=== PATIENT | female | born 1970 | race Caucasian/White ===

== ENCOUNTER 2017-06-16 14:35 | Emergency (ER) | payer OTHER ==
[~2017-06-16] VITALS: Ht 175.3 cm; Wt 81.2 kg
[~2017-06-16 14:35] MED LIST: ASPI-391 PO; CLR10 PO; LEVO150T9 PO
[2017-06-16 14:41] VITALS: TEMP 36.8; Ht 175.3 cm; Wt 81.2 kg
--- NOTE | 2017-06-16 15:36 | EMERGENCY ROOM VISIT NOTE ---
History First contact with patient: 14:53 Chief Complaint: DIZZY Stated Complaint: SOB CHEST PAIN Nursing Triage Summary: Pt states that for the past week she has been feeling anxious and light headed. Pt states that she was having chest discomfort last Friday. Pt is worried because her mother has had an DC. Pt states that when she had the chest discomfort her left arm became numb. Pt becomes dizzy several times a day. Pt does have Graves disease and thinks that maybe her levels are off. History of Present Illness The patient is a 46 year old female who presents to the Emergency Room with complaints of intermittent chest discomfort associated with left shoulder pain, tingling in bilateral upper extremities, and nausea with vomiting. The patient is scheduled to have a hysterectomy next Friday due to severe vaginal bleeding, and was unable to be seen by her PCP today. The patient begins her history describing severe vaginal bleeding which began in April. She states this occurred through June, and she has been seen several times by her magnetic resonance technologist with the decision to have a hysterectomy. She had her preop lab work completed 1 week ago, but a lab for the patient's TSH and free T4 was messed. The patient does have a history of Graves' disease, and states approximately 6 weeks ago, her Levoxyl was increased from 125 g to 150 g daily. She states she was supposed to have the labs completed Friday with her preop labwork, but the order was missed, so she was unable to have this tested. The patient was cleared for surgery by her PCP, but did not have an EKG at her appointment last week. She states 2 days after her preop appointment, she began experiencing a headache in the back of her head, which was associated with dizziness and lightheadedness. She was at work when this occurred, so she went home. While at home, she began experiencing chest discomfort in the substernal area, as well as a throbbing headache. She states she was having some nausea, one episode of vomiting, and her left bicep became heavy and her left hand was tingly. She fell asleep to take a nap, and when she awoke, she became lightheaded with bilateral paresthesias in her hands when she stood up. She states she tried several times to stand, and was unsuccessful without the symptoms. She states she called off the rest of her evening at work due to her symptoms. She states on , she did go to work, but still was not feeling quite right. She states she has been having intermittent symptoms for the past 5 days. Now, she is complaining of intermittent posterior shoulder "nagging" associated with substernal chest discomfort which she describes as "like when you're coughing". She states she has been getting winded easily, and she has found that she needs to rest due to palpitations, worse when physically active such as walking upstairs. She states she has noticed that her heart rate has been elevated, in the high 90s and low 100s. She became concerned today because after showering, she noticed a heart rate of 162. The patient's mother did have a heart attack at age 48, so the patient and her mother are both concerned that the patient could be experiencing cardiac problems. The patient states she is uncertain if her cholesterol has ever been checked, does not have a history of hypertension, is not a smoker, and takes no hormone replacement. She denies any recent travel, but states she did have some intermittent right calf pain associated with her discomfort last week, and she has not had the pain since. When asked about aggravating factors, the patient states that activity worsens the chest discomfort and dyspnea, and she does get winded easily while talking. She states food also worsens the nausea. The patient states rest improves her symptoms, but she does occasionally get the symptoms at rest as well. The patient states she has not been sexually active for 6 months, and she denies any urinary symptoms. She denies any cough or coughing up sputum. She denies any calf swelling or chest pressure. She denies any recent illness, and states she has had some mild congestion, but attributed this to allergies. Review of Systems A complete 10 point review of systems was reviewed with the patient with pertinent positives and negatives as per history of present illness. All else were negative. 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 Current/Historical Medications Scheduled Levothyroxine Sodium (Levothyroxine Sodium), 150 MCG PO QAM Scheduled PRN Yjgrriw-Vzztjynwsbztt-Riwhobtp (Excedrin Extra Strength), 2 TABS PO UD PRN for Headache or Pain Loratadine (Claritin), 10 MG PO DAILY PRN for Allergy Symptoms Allergies Codeine, doxycycline Physical Exam Vital Signs Date Time Temp Pulse Resp B/P (MAP) Pulse Ox O2 Delivery O2 Flow Rate FiO2 06/16/17 18:24 70 20 115/80 98 06/16/17 17:16 63 20 128/76 100 Room Air 06/16/17 15:09 89 06/16/17 14:41 36.8 102 18 138/87 100 Room Air Physical Exam VITALS: Vitals are noted on the nurse's note and reviewed by myself. Vital signs stable. GENERAL: This is a 46-year-old white female, in no acute distress, nondiaphoretic, well-developed well-nourished. SKIN: The skin was without rashes, erythema, edema, or bruising. There is no tenting of the skin. Capillary reflex less than 2 seconds. HEAD: Normocephalic atraumatic. EARS: External auditory canals clear, tympanic membranes pearly daugherty without erythema or effusion bilaterally. EYES: Pupils equal round and reactive to light and accommodation. Conjunctivae without injection, sclerae without icterus. Extraocular movements intact. NOSE: Patent, turbinates without inflammation or discharge. No sinus tenderness. MOUTH: Mucous membranes moist. Tonsils are not enlarged. Pharynx without erythema or exudate. Uvula midline. Airway patent. Tongue does not deviate. NECK: Supple without nuchal rigidity. No lymphadenopathy. Thyroid not present. Cervical spine is nontender. No JVD. HEART: Regular rate and rhythm without murmurs gallops or rubs. LUNGS: Clear to auscultation bilaterally without wheezes, rales or rhonchi. No dullness to percussion. No retractions or accessory muscle use. ABDOMEN: Positive bowel sounds x 4. Normal tympanic percussion. Soft, nontender, without masses or organomegaly. Mejia sign negative. No guarding or rebound tenderness. MUSCULOSKELETAL: There is discomfort on palpation of the sternum as well as the left scapula. There is also discomfort on palpation of the left biceps. The patient states this discomfort is similar to what she experiences when she gets flare-ups of her symptoms. No muscle atrophy, erythema, or edema noted, specifically, no edema or redness of the calves. Full range of motion without joint tenderness in all extremities. No tenderness to palpation. Normal gait. Strength 5/5 throughout. NEURO: Patient was alert and oriented to person place and time. Normal sensation to light and sharp touch. Deep tendon reflexes 2+ throughout. No focal neurological deficits. Medical Decision & Procedures ER Provider Diagnostic Interpretation: TWO VIEW CHEST CLINICAL HISTORY: Substernal chest pain. FINDINGS: PA and lateral chest radiographs are obtained. No prior studies are available for comparison at the time of dictation. The cardiomediastinal silhouette is unremarkable. The lungs and pleural spaces are clear. Apical scarring is observed. There is no pneumothorax. The bony thorax appears intact. IMPRESSION: No active disease in the chest. Electronically signed by: Dutch Ulloa M.D. 06/16/2017 4:10 PM Dictated Date/Time: 06/16/2017 4:09 PM CBC did show very mild anemia. This has improved patient's previous labs tested one week ago. CMP showed slightly decreased potassium of 3.3. Troponin and CK-MB were normal. Troponin was repeated approximately 1.5 hours later and was negative. D-dimer was positive at 660. A CTA chest was ordered and reviewed. TSH 0.080 and Free T4 1.44. Of note, the patient states her previous TSH tested on 05/01 was 1.38. Her Free T4 at that time was 0.724. She states due to her history of Graves disease, she is aware that she generally feels well with a TSH of around 1.0. CT ANGIOGRAM OF THE CHEST CLINICAL HISTORY: Atypical chest pain. COMPARISON STUDY: Chest radiographs dated 06/16/2017. TECHNIQUE: Following the IV administration of 100 cc of Optiray 320, CT angiogram of the chest was performed from the upper abdomen to the thoracic inlet utilizing the pulmonary embolus protocol. Images are reviewed in the axial, sagittal, and coronal planes. 3-D MIPS images are created and assessed. IV contrast was administered without complication. A dose lowering technique was utilized adhering to the principles of ALARA. CT DOSE: 270.26 mGy.cm FINDINGS: Thyroid: Markedly atrophic. Thoracic aorta: The thoracic aorta is normal in caliber and demonstrates standard 3-vessel arch anatomy. No dissection is seen. Pulmonary vasculature: The pulmonary trunk is normal in caliber. There are no filling defects identified in main, lobar, or segmental pulmonary branches to suggest pulmonary embolus. Heart: The heart is normal in size and configuration, and without pericardial effusion. Lungs and pleural spaces: Evaluation of the lung parenchyma is modestly degraded by motion artifact. No airspace consolidation or pleural effusion is identified. A calcified granuloma is seen in the right upper lobe. The trachea and central airways are clear. Mediastinum: There is no mediastinal lymphadenopathy. Oliva: Clear. Axillae: There is no axillary lymphadenopathy. Upper abdomen: Partially visualized upper abdominal viscera is within normal limits. Skeletal structures: No lytic or blastic bony lesions are seen. IMPRESSION: 1. There is no evidence of pulmonary embolus in the main, lobar, or segmental pulmonary arteries. 2. The lungs are clear. Electronically signed by: Dutch Ulloa M.D. 06/16/2017 6:03 PM Dictated Date/Time: 06/16/2017 5:59 PM Repeat EKG showed rate of 63, no sinus arrhythmia, no acute ischemic changes, no significant change from previous EKG. Laboratory Results 06/16/17 15:30 Red Blood Count 4.04, Mean Corpuscular Volume 84.7, Mean Corpuscular Hemoglobin 27.7, Mean Corpuscular Hemoglobin Concent 32.7, Mean Platelet Volume 11.9, Neutrophils (%) (Auto) 51.2, Lymphocytes (%) (Auto) 40.4, Monocytes (%) (Auto) 5.7, Eosinophils (%) (Auto) 2.2, Basophils (%) (Auto) 0.3, Neutrophils # (Auto) 3.31, Lymphocytes # (Auto) 2.61, Monocytes # (Auto) 0.37, Eosinophils # (Auto) 0.14, Basophils # (Auto) 0.02 06/16/17 15:30 Test 06/16/17 15:19 06/16/17 15:30 06/16/17 17:23 Creatine Kinase MB Ratio (0-3.0) White Blood Count 6.46 K/uL (4.8-10.8) Red Blood Count 4.04 M/uL (4.2-5.4) Hemoglobin 11.2 g/dL (12.0-16.0) Hematocrit 34.2 % (37-47) Mean Corpuscular Volume 84.7 fL (80-100) Mean Corpuscular Hemoglobin 27.7 pg (25-34) Mean Corpuscular Hemoglobin Concent 32.7 g/dl (32-36) Platelet Count 342 K/uL (130-400) Mean Platelet Volume 11.9 fL (7.4-10.4) Neutrophils (%) (Auto) 51.2 % Lymphocytes (%) (Auto) 40.4 % Monocytes (%) (Auto) 5.7 % Eosinophils (%) (Auto) 2.2 % Basophils (%) (Auto) 0.3 % Neutrophils # (Auto) 3.31 K/uL (1.4-6.5) Lymphocytes # (Auto) 2.61 K/uL (1.2-3.4) Monocytes # (Auto) 0.37 K/uL (0.11-0.59) Eosinophils # (Auto) 0.14 K/uL (0-0.5) Basophils # (Auto) 0.02 K/uL (0-0.2) RDW Standard Deviation 46.2 fL (36.4-46.3) RDW Coefficient of Variation 15.0 % (11.5-14.5) Immature Granulocyte % (Auto) 0.2 % Immature Granulocyte # (Auto) 0.01 K/uL (0.00-0.02) D-Dimer 660 ug/L FEU (0-500) Anion Gap 7.0 mmol/L (3-11) Est Creatinine Clear Calc Drug Dose 124.6 ml/min Estimated GFR () 124.3 Estimated GFR (Non- 107.2 BUN/Creatinine Ratio 17.5 (10-20) Calcium Level 8.9 mg/dl (8.5-10.1) Magnesium Level 2.3 mg/dl (1.8-2.4) Total Bilirubin 0.2 mg/dl (0.2-1) Aspartate Amino Transf (AST/SGOT) 12 U/L (15-37) Alanine Aminotransferase (ALT/SGPT) 16 U/L (12-78) Alkaline Phosphatase 74 U/L (45-117) Creatine Kinase MB < 0.5 ng/ml (0.5-3.6) Troponin I < 0.015 ng/ml (0-0.045) Pro-B-Type Natriuretic Peptide 130 pg/ml (0-450) Total Protein 8.0 gm/dl (6.4-8.2) Albumin 4.1 gm/dl (3.4-5.0) Globulin 3.9 gm/dl (2.5-4.0) Albumin/Globulin Ratio 1.1 (0.9-2) Thyroid Stimulating Hormone (TSH) 0.080 uIu/ml (0.300-4.500) Free Thyroxine 1.44 ng/dl (0.80-1.60) Bedside Troponin I < 0.030 ng/ml (0-0.045) ECG Indication: chest pain Rate (beats per minute): 65 Rhythm: sinus with SA Findings: no acute ischemic change, no ectopy Comparison ECG Date: no prior available Medical Decision The patient was seen and evaluated as above. She presented today with various complaints, including paresthesias, headache, nausea, vomiting, chest pain, left arm pain, and dyspnea. She was sent here by her magnetic resonance technologist due to all of her symptoms to be evaluated and to ensure she is not having an acute cardiac problem which would prevent her from having the surgery next week. The patient does have a history of Graves' disease, and states her Levoxyl was adjusted approximately 6 weeks ago. She is supposed to have labs completed last week to evaluate her thyroid hormones, but the order was overlooked. She had one significant episode of headache, dizziness, lightheadedness, chest pain , and associated dyspnea. Since this episode last week, she has been having intermittent symptoms which are concerning for cardiac etiology. Cardiac workup in the emergency department was overall negative. I did elect to order a D-dimer test due to the patient's complaint of calf pain and dyspnea. This was positive, so a CTA of the chest was ordered and was found to be negative. While in the emergency department, the patient was having intermittent chest pain and difficulty breathing, worse with exertion. She states she was feeling very stressed, but is also concerned about her thyroid. She was feeling relieved as I discussed with her the negative lab workup multiple times. I encouraged her to follow up outpatient with her PCP, and consider ongoing workup including stress test, cholesterol testing, and possible echocardiogram if necessary, but I do suspect the patient's symptoms are likely related to her thyroid disorder and surgery. I did discuss the case with Dr. Carter, who is in agreement with the assessment and plan. Differential diagnosis includes acute coronary syndrome, pulmonary embolism, DVT , heart failure, hypothyroidism, hyperthyroidism, musculoskeletal pain, dizziness, vertigo, orthostatic hypotension, migraine, complicated migraine, pneumonia, anxiety, anemia, malignancy, and others. Medication Reconcilliation Current Medication List: was personally reviewed by me Blood Pressure Screening Patient's blood pressure: Normal blood pressure Impression Primary Impression: Dizziness Additional Impressions: Chest pain Dyspnea Graves' disease Departure Information Dispostion Home / Self-Care Condition GOOD Referrals Melvin Khoury M.D. (PCP) Patient Instructions ED Chest Pain NonCardiac, ED Dizziness [facility], ED Dyspnea Shortness of Breath, [facility] Additional Instructions You have been treated in the Emergency Department for your Non-Cardiac Chest Pain. Laboratory results and Imaging Studies have ruled out any cardiac or pulmonary cause of your chest pain. For pain control, you can use the following kata-dwv-muyaurs medicines (if >12 yo): Ibuprofen(Motrin, Advil) may be used for fever or pain. Use 600mg every six hours as needed. Take with food. Avoid using more than 2400mg in a 24 hour period. Do not use 2400mg per day for more than three consecutive days without physician direction. Prolonged inappropriate use can lead to stomach upset or ulcers. (AND/OR) Acetaminophen(Tylenol) may be used for fever or pain. Use 1000mg every six hours as needed. Avoid using more than 3000mg in a 24 hour period. You should schedule a follow-up appointment with your Primary Care Provider in 2 -3 days for further evaluation from today's Emergency Department visit. As discussed, I do suspect your thyroid hormones could be the cause of some of your symptoms. Please contact your PCP for ongoing management of your Graves' Disease. Return to the Emergency Department if your current symptoms worsen despite treatment course outlined above, or if you develop any of the following symptoms : worsening chest pain, associated jaw/arm pain, nausea, dizziness, shortness of breath, bloody cough, or fainting. Problem Qualifiers Additional Impressions: Chest pain Chest pain type: other chest pain Qualified Codes: R07.89 - Other chest pain Dyspnea Dyspnea type: dyspnea on exertion Qualified Codes: R06.09 - Other forms of dyspnea
[2017-06-16 15:53] LABS: BASO % 0.3 %; BASO ABS # 0.02 K/uL (0-0.2); COMPLETE YES; EOS % 2.2 %; HEMATOCRIT 34.2 % (37-47); IG% 0.2 %; LYMPH % 40.4 %; LYMPH ABS # 2.61 K/uL (1.2-3.4); MEAN CELL VOLUME 84.7 fL (80-100); MEAN CORPUSCULAR HEMOGLOBIN 27.7 pg (25-34); MEAN CORPUSCULAR HGB CONC 32.7 g/dl (32-36); MEAN PLATELET VOLUME 11.9 fL (7.4-10.4); MONO % 5.7 %; NEUT % 51.2 %; PLATELET COUNT 342 K/uL (130-400); RED BLOOD COUNT 4.04 M/uL (4.2-5.4); WHITE BLOOD COUNT 6.46 K/uL (4.8-10.8)
[2017-06-16 16:09] LABS: ALT/SGPT 16 U/L (12-78); BLOOD UREA NITROGEN 11 mg/dl (7-18); BUN/CREATININE RATIO 17.5 (10-20); CALCIUM 8.9 mg/dl (8.5-10.1); CARBON DIOXIDE 26 mmol/L (21-32); CHLORIDE 104 mmol/L (98-107); CREATININE 0.65 mg/dl (0.60-1.20); GLUCOSE 86 mg/dl (70-99); MAGNESIUM 2.3 mg/dl (1.8-2.4); POTASSIUM 3.3 mmol/L (3.5-5.1); SODIUM 137 mmol/L (136-145)
--- NOTE | 2017-06-16 16:11 | DIAGNOSTIC IMAGING REPORT ---
TWO VIEW CHEST CLINICAL HISTORY: Substernal chest pain. FINDINGS: PA and lateral chest radiographs are obtained. No prior studies are available for comparison at the time of dictation. The cardiomediastinal silhouette is unremarkable. The lungs and pleural spaces are clear. Apical scarring is observed. There is no pneumothorax. The bony thorax appears intact. IMPRESSION: No active disease in the chest. Electronically signed by: Dutch Ulloa M.D. 06/16/2017 4:10 PM Dictated Date/Time: 06/16/2017 4:09 PM
[2017-06-16 16:20] LABS: ALB/GLOB RATIO 1.1 (0.9-2); ALKALINE PHOSPHATASE 74 U/L (45-117); AST/SGOT 12 U/L (15-37)
[2017-06-16] MEDS ORDERED: OPTIRAY 320 IV PRN (18:00)
--- NOTE | 2017-06-16 18:04 | DIAGNOSTIC IMAGING REPORT ---
CT ANGIOGRAM OF THE CHEST CLINICAL HISTORY: Atypical chest pain. COMPARISON STUDY: Chest radiographs dated 06/16/2017. TECHNIQUE: Following the IV administration of 100 cc of Optiray 320, CT angiogram of the chest was performed from the upper abdomen to the thoracic inlet utilizing the pulmonary embolus protocol. Images are reviewed in the axial, sagittal, and coronal planes. 3-D MIPS images are created and assessed. IV contrast was administered without complication. A dose lowering technique was utilized adhering to the principles of ALARA. CT DOSE: 270.26 mGy.cm FINDINGS: Thyroid: Markedly atrophic. Thoracic aorta: The thoracic aorta is normal in caliber and demonstrates standard 3-vessel arch anatomy. No dissection is seen. Pulmonary vasculature: The pulmonary trunk is normal in caliber. There are no filling defects identified in main, lobar, or segmental pulmonary branches to suggest pulmonary embolus. Heart: The heart is normal in size and configuration, and without pericardial effusion. Lungs and pleural spaces: Evaluation of the lung parenchyma is modestly degraded by motion artifact. No airspace consolidation or pleural effusion is identified. A calcified granuloma is seen in the right upper lobe. The trachea and central airways are clear. Mediastinum: There is no mediastinal lymphadenopathy. Oliva: Clear. Axillae: There is no axillary lymphadenopathy. Upper abdomen: Partially visualized upper abdominal viscera is within normal limits. Skeletal structures: No lytic or blastic bony lesions are seen. IMPRESSION: 1. There is no evidence of pulmonary embolus in the main, lobar, or segmental pulmonary arteries. 2. The lungs are clear. Electronically signed by: Dutch Ulloa M.D. 06/16/2017 6:03 PM Dictated Date/Time: 06/16/2017 5:59 PM
[2017-06-16 18:24] VITALS: BP 115/80; PULSE 70; O2SAT 98
== END 2017-06-16 18:25 | disposition home or self-care (01) ==
LOC: C.EDB 14:37 → C.EDA 18:25
DX: R42 Dizziness and giddiness (principal); R07.89 Other chest pain; R06.09 Other forms of dyspnea; E05.00 Thyrotoxicosis with diffuse goiter without thyrotoxic crisis or storm; R11.2 Nausea with vomiting, unspecified; E89.0 Postprocedural hypothyroidism

== ENCOUNTER 2017-07-18 07:10 | Observation (INO) | payer OTHER ==
[2017-06-09 10:33] VITALS: BMI 28.0
[2017-06-09 10:44] VITALS: BMI 28.0
--- NOTE | 2017-06-09 10:59 | PAT Medication Instructions ---
Service Date Jun 09, 2017. Current Home Medication List Wylowmy-Kvxfihoseaqwv-Wpqyndun (Excedrin Extra Strength), 2 TAB PO PRN Levothyroxine Sodium (Levothyroxine Sodium), 1 TAB PO QAM Loratadine (Claritin), 10 MG PO PRN Medication Instructions For Your Scheduled Surgery Contact your surgeon for instructions for: Jrtmmzh-Axcbnudohujqt-Ojypilpe (Excedrin Extra Strength), 2 TAB PO PRN - Hold the following medications the morning of surgery: Loratadine (Claritin), 10 MG PO PRN - Take the following medications the morning of surgery with a sip of water: Levothyroxine Sodium (Levothyroxine Sodium), 1 TAB PO QAM - Take the following medications as scheduled the night before surgery: Loratadine (Claritin), 10 MG PO PRN (if needed) If you have any questions please call us at [phone] or [phone] or [phone]
[2017-06-09 11:44] LABS: BASO % 0.4 %; BASO ABS # 0.03 K/uL (0-0.2); EOS % 2.9 %; HEMATOCRIT 33.1 % (37-47); HEMOGLOBIN 10.8 g/dL (12.0-16.0); IG# 0.02 K/uL (0.00-0.02); LYMPH % 38.7 %; LYMPH ABS # 2.63 K/uL (1.2-3.4); MEAN CELL VOLUME 84.7 fL (80-100); MEAN CORPUSCULAR HEMOGLOBIN 27.6 pg (25-34); MEAN CORPUSCULAR HGB CONC 32.6 g/dl (32-36); MEAN PLATELET VOLUME 12.2 fL (7.4-10.4); MONO % 10.3 %; NEUT % 47.4 %; NEUT ABS # 3.21 K/uL (1.4-6.5); PLATELET COUNT 284 K/uL (130-400); RED CELL DISTRIBUTION WIDTH CV 14.7 % (11.5-14.5); RED CELL DISTRIBUTION WIDTH SD 45.4 fL (36.4-46.3); WHITE BLOOD COUNT 6.79 K/uL (4.8-10.8)
[2017-06-09 14:43] LABS: CALCIUM 8.7 mg/dl (8.5-10.1); CREATININE 0.67 mg/dl (0.60-1.20); POTASSIUM 4.4 mmol/L (3.5-5.1)
[2017-07-17 09:31] VITALS: BMI 27.0
[~2017-07-18] VITALS: Ht 170.2 cm; Wt 80.9 kg
[2017-07-18] VITALS (7 sets, daily range): BP systolic 93–102; BP diastolic 51–58; PULSE 56–66; TEMP 36.5–37.1; O2SAT 98–100; Ht 170.2 cm; Wt 80.9 kg
[~2017-07-18 07:10] MED LIST changes: +BUPIVACAINE 0.5 % 5 MG/1 ML MPF 30ML VIAL ONE; +CEFAZOLIN 2000MG IV PUSH 10 ML IV SCH; +LACTATED RINGER'S 1000ML 1,000 ML IV SCH; +LEVO112T4 PO; -LEVO150T9 PO
[2017-07-18] MEDS ORDERED: FENTANYL CITRATE INJ 50 MCG/1 ML 2 ML VIAL ONE ×2 (07:11→09:47)
[2017-07-18] MEDS ORDERED: MIDAZOLAM HCL 1 MG/ML 2ML VIAL ONE (07:11)
--- NOTE | 2017-07-18 08:53 | History & Physical Bridge Note ---
H&P Re-Evaluation Bridge Note: I have examined the patient, reviewed the History & Physical and in the interval since the performance of the History & Physical I have noted the following changes of clinical significance: No changes noted
[2017-07-18] MEDS ORDERED: SCOPOLAMINE 1.5 MG TDSY TD SCH (09:00)
[2017-07-18] MEDS ORDERED: HYDROmorphone INJ 1 MG/ML SYR IV PRN (09:00)
[2017-07-18] MEDS ORDERED: FENTANYL CITRATE INJ 50 MCG/1 ML 2 ML VIAL IV PRN (09:00)
[2017-07-18] MEDS ORDERED: ATROPINE SULFATE 0.1 MG/ML 5ML SYR IV PRN (09:00)
[2017-07-18] MEDS ORDERED: EpHEDrine SULFATE INJ 50 MG/ML AMP IV PRN (09:00)
[2017-07-18] MEDS ORDERED: ONDANSETRON INJ 2 MG/ML 2 ML VIAL IV PRN ×2 (09:00→11:00)
[2017-07-18] MEDS ORDERED: PROMETHAZINE HCL INJ 12.5 MG in SODIUM CHLORIDE 0.9% 50ML 50 ML IV PRN ×2 (09:00→11:00)
[2017-07-18] MEDS ORDERED: SCOPOLAMINE 1.5 MG TDSY TD ONE (09:05)
[2017-07-18] MEDS: CEFAZOLIN 2000MG IV PUSH 10 ML IV SCH ×2 (09:10→09:11)
[2017-07-18] MEDS ORDERED: LIDOCAINE HCL 2% 2 ML VIAL (20MG/ML) ONE (09:45)
[2017-07-18] MEDS ORDERED: DEXAMETHASONE SOD INJ 4 MG/ML VIAL ONE (09:45)
[2017-07-18] MEDS ORDERED: ONDANSETRON INJ 2 MG/ML 2 ML VIAL ONE (09:46)
[2017-07-18] MEDS ORDERED: GLYCOPYRROLATE INJ 0.2 MG/ML VIAL ONE (09:46)
[2017-07-18] MEDS ORDERED: ROCURONIUM BROMIDE 10 MG/ML 5 ML VIAL IV ONE ×2 (09:46→10:14)
[2017-07-18] MEDS ORDERED: LARYING-O-JET KIT (LTA) ONE (09:46)
[2017-07-18] MEDS ORDERED: NEOSTIGMINE METHYLSULFATE 5 MG/5 ML SYR ONE (09:46)
[2017-07-18] MEDS ORDERED: PROPOFOL IV EMULSION 10 MG/ML 20 ML VIAL IV ONE (09:46)
[2017-07-18] MEDS ORDERED: KETOROLAC TROMETHAMINE 30 MG/ML VIAL ONE (09:51)
[2017-07-18] MEDS ORDERED: METHYLENE BLUE 0.5% 10 ML VIAL ONE (09:57)
[2017-07-18] MEDS ORDERED: TISSEEL FIBRIN SEALANT 4ML TOP ONE (10:40)
[2017-07-18] MEDS ORDERED: IBUPROFEN 600 MG TAB PO PRN (11:00)
[2017-07-18] MEDS ORDERED: MEPERIDINE HCL 50 MG/ML CARP IV PRN ×2 (11:00)
[2017-07-18] MEDS ORDERED: PROMETHAZINE HCL INJ 25 MG in SODIUM CHLORIDE 0.9% 50ML 50 ML IV PRN (11:00)
[2017-07-18] MEDS ORDERED: ACETAMINOPHEN 325 MG TAB PO PRN (11:00)
[2017-07-18] MEDS ORDERED: OXYCODONE/ACETAMINOPHEN 5-325 TAB PO PRN ×2 (11:00)
[2017-07-18] MEDS ORDERED: BISACODYL 10 MG SUPP PR PRN (11:00)
[2017-07-18] MEDS ORDERED: MAGNESIUM HYDROXIDE SUSP 30 ML UDC PO PRN (11:00)
[2017-07-18] MEDS ORDERED: KETOROLAC TROMETHAMINE 30 MG/ML VIAL IV. PRN (11:00)
[2017-07-18] MEDS ORDERED: SIMETHICONE 80 MG CHEW PO PRN (11:00)
[2017-07-18] MEDS ORDERED: ZOLPIDEM TARTRATE 5 MG TAB PO PRN (11:00)
--- NOTE | 2017-07-18 11:02 | [facility] Post Operative Brief Note ---
Immediate Operative Summary Operative Date Jul 18, 2017. Pre-Operative Diagnosis Abnormal perimenopausal bleeding and Menorrhagia Post-Operative Diagnosis Abnormal perimenopausal bleeding and Menorrhagia Procedure(s) Performed Robotic assisted total laparoscopic hysterectomy with bilateral salpingectomies and cystoscopy Surgeon Dr. Nanda Coulter MD Veterinary Medicine Doctor Surgeon(s) None Estimated Blood Loss 50ml Findings normal anatomy Specimens A. Uterus, cervix, and bilateral fallopian tubes Drains Young Anesthesia General Complication(s) None Disposition Recovery Room / PACU
--- NOTE | 2017-07-18 11:03 | Discharge Instructions ---
Discharge Instructions Date of Service Jul 18, 2017. Admission Reason for Admission: Menorrhagia, Abnormal Perimenopausal Bleeding Discharge Discharge Diagnosis / Problem: menorrhagia Discharge Goals Goal(s): Routine recovery after surgery Activity Recommendations Activity Limitations: per Instructions/Follow-up section . Instructions / Follow-Up Instructions / Follow-Up POST OPERATIVE: BOWEL FUNCTION/MEDICATIONS: 1. Constipation pain and discomfort are the most common complaints 5-7 days after surgery. Points 2-6 address the things that can help. 2. Chewing gum can help stimulate the gut and help improve digestion and motility. 3. Milk of Magnesia 1-2 times per day until return of bowel function. 4. Colace is a stool softener that helps. Taking this 2-3 times per day until bowel function returns to normal is highly recommended. 5. Dulcolax is a laxative that may be used if several days have passed without a bowel movement. Alternatively Miralax may be used daily instead. 6. Drink plenty of fluids as this will also reduce constipation. 7. Narcotic pain medications will be prescribed by your physician. They are safe to use and we encourage you to use them. If you are not allergic, ibuprofen will also be prescribed. Many patients will be able to transition off of the narcotic medications to ibuprofen by postoperative day 3. ACTIVITY RECOMMENDATIONS: 1. Get plenty of rest and listen to your body. If you are tired, take a nap. 2. You may shower, but do not take a tub bath until you see your doctor at the 2 week post operative visit. 3. Absolutely NO intercourse and nothing in the vagina until you are examined by your doctor at the 6 week visit. At that visit it will be determined when such activities can be resumed. This can range from 6-12 weeks after your surgery depending on healing time. 4. The main physical activity in the first week should be walking. By the second week you can slowly increase activity. There are no limits on walking up and down stairs. 5. Do not lift more than 5-10 lbs for 4 weeks. Remember the "one-handed rule", i.e. if you can lift something with only one hand it's likely okay. 6. Minimize obstetrics specialist like vacuuming and exercising for 4 weeks. "Overdoing it" can lead to incisions not healing, pain and vaginal bleeding , so again, listen to your body. 7. Driving can be resumed when you feel able. Do not drive within 24 hours of taking a narcotic medication. EXPECTATIONS: 1. Vaginal spotting, bleeding and discharge are common after surgery. There may even be an odor to the discharge which is often related to sutures used in the vagina. If you experience heavy vaginal bleeding, call the office number day or night [phone]. 2. Bladder discomfort is common after surgery from the catheter. This usually resolves in 1-2 weeks. 3. By the end of the 3rd or 4th week you should be feeling much better. It may take up to 6 weeks for your energy levels to return to normal. 4. Narcotic medications have side effects such as: dizziness, headache, nausea and/or vomiting. If you suspect your pain medication is causing problems, call our office and we may be able to prescribe an alternate medication. 5. The skin incisions are often covered with a liquid bandage. This will gradually peel off over time. CALL THE OFFICE IF YOU HAVE ANY OF THE FOLLOWIN. Temperature of 101 degrees or higher. 2. Severe abdominal or pelvic pain not relieved by pain medication. 3. Persistent nausea or vomiting. 4. Increased pain with urination or difficulty urinating. 5. Bright red bleeding that soaks more than 1 pad per hour. CONTACT PHONE NUMBERS: Main Office: [phone] Surgical Nurse: [phone] extension [phone] Avoid all tobacco products. If you need help to stop smoking, call [place]'s FREE QUITLINE at . This is a free call. Current Hospital Diet Patient's current hospital diet: Discharge Diet Recommended Diet: Regular Diet Procedures Procedures Performed: Robotic assisted total laparoscopic hysterectomy with bilateral salpingectomies and cystoscopy Pending Studies Studies pending at discharge: no Medical Emergencies . Who to Call and When: Medical Emergencies: If at any time you feel your situation is an emergency, please call 911 immediately. . Non-Emergent Contact Non-Emergency issues call your: Chief Mechanical Engineer . . "Provider Documentation" section prepared by Xu Coulter. . VTE Core Measure Inpt VTE Proph given/why not?: Ahmet Crow, [facility]
[2017-07-18] MEDS ORDERED: OXYC-57 PO (11:04)
[2017-07-18] MEDS ORDERED: MTR600X PO (11:04)
--- NOTE | 2017-07-18 11:31 | OPERATIVE REPORT ---
DATE OF OPERATION: 07/18/2017 PREOPERATIVE DIAGNOSIS: Abnormal perimenopausal bleeding and menorrhagia. POSTOPERATIVE DIAGNOSIS: Same. PROCEDURE: Robotically assisted total laparoscopic hysterectomy, bilateral salpingectomies and cystoscopy. SURGEON: Dr. Coulter. AUTO SERVICE REPRESENTATIVE: None. ESTIMATED BLOOD LOSS: 50 mL. FINDINGS: Normal anatomy. SPECIMENS: Uterus, cervix, bilateral fallopian tubes. DRAINS: Yougn catheter. ANESTHETIC: General. COMPLICATIONS: None. DISPOSITION: Recovery room. DESCRIPTION OF PROCEDURE: The patient was given a general anesthetic, prepped and draped in dorsolithotomy position. Care was taken on positioning. IV Ancef given preoperatively. Time-out performed. The procedure was begun by placing a Young catheter in bladder, V-Care was then inserted into her uterus in the usual fashion and sewn in place. Gloves changed and a subumbilical vertical incision was made for laparoscopic entry. Using open Rica technique, we did a direct cutdown cutting down the subcutaneous fat to the fascia in the midline, splitting the rectus muscles and entering the peritoneal cavity without difficulty. Blunt-tipped Rica trocar placed, balloon inflated in the port for stabilization and then CO2 gas used to insufflate the abdomen. FINDINGS: Using a 10 mm laparoscope I visualized the upper abdomen. There was no sign of visceral organ injury. There were no significant adhesions. The pelvis was visualized. There was a small area of endometriosis on the back wall of the uterus, pelvic sidewalls appeared normal. Ureters seemed to follow a normal course. There were some adhesions of the colon on the left side to the left sidewall and adnexa. Otherwise, findings were normal as were the adnexa. Two robotic ports, 1 in the left, 1 in the right placed under direct visualization. A left upper quadrant bladeless 11 mm port also placed. The robot was then docked. Arm #1 was monopolar pascual, arm #2 was bipolar [place]. The patient was already in deep Trendelenburg position and using the V-Care to manipulate I identified the left ureter and the right ureter, they followed a normal course. Fallopian tubes were removed on left and right sides initially to better visualize exposure. These were removed through the accessory ports. The blood supply distal to the left ovary was then coagulated with the bipolar [place] then cut with monopolar pascual. Same process with the round ligament. Bladder flap was then dissected away and uterine vessels on the left side were skeletonized. These were then coagulated. We were well away from the left ureter when this was done and then vessels transected with the monopolar pascual. Same exact process was continued on the right side. Once the bladder flap was fully secured away and both uterine vessel bundles were coagulated and cut, we made an anterior colpotomy with the monopolar pascual. This was then continued around staying medial of our uterine vessel ligations. Once the uterus was fully from the vagina, it was pulled into the vagina and then removed. A glove and sponge placed in the vagina to maintain pneumoperitoneum. Hemostasis was excellent at this stage. IV methylene blue given by anesthesia. We then closed the cuff by doing instrument exchange, arm #1 became the deana needle cart driver, arm #2 became the cobra. Using a 2-0, 90-day V-Loc suture passed through the accessory port, cuff was closed from left to right, ensuring at least 1 cm full thickness bites of vaginal mucosa. It should be noted cuff looked healthy and thick. After closure of the cuff suture was cut so there was no tail and needle removed through the accessory port. After generous irrigation and suction, Tisseel was applied. This was to the pedicles 4 mL. We then performed cystoscopy removing the Young catheter, visualizing the bladder with the cystoscope using normal saline as our solution. There were no stitches in the bladder, no sign of damage and good strong jets of bluish green dye from left and right ureter openings. At this stage cystoscope removed and a new Young catheter placed. The sponge had been removed already. There was no vaginal bleeding noted. The hemostasis was excellent laparoscopically so the robot instruments removed, robot undocked, ports removed, gas allowed to escape and incision injected with 0.5% Marcaine. Fascia closed in the umbilical incision and left upper quadrant incision, 4-0 subcuticular Monocryl closures. All incisions were injected with 0.5% Marcaine as mentioned and Dermabond applied. Sponge and instrument counts correct. I attest to the content of the Intraoperative Record and any orders documented therein. Any exception s are noted below.
--- NOTE | 2017-07-18 12:08 | Anesthesiology Progress Note ---
Anesthesia Post Op Note Date & Time Jul 18, 2017 at 12:07 Vital Signs Pain Intensity: 0 Vital Signs Past 12 Hours Date Time Temp Pulse Resp B/P (MAP) Pulse Ox O2 Delivery O2 Flow Rate FiO2 07/18/17 12:00 54 15 98/57 (72) 100 Nasal Cannula 2 07/18/17 11:45 36.2 50 16 94/53 (61) 100 Nasal Cannula 2 07/18/17 11:35 50 19 101/57 100 Nasal Cannula 2 07/18/17 11:25 51 15 92/51 (58) 100 Oxymask 10 07/18/17 11:15 59 17 99/57 (64) 100 Oxymask 10 07/18/17 11:09 36.2 86 14 106/64 99 Oxymask 10 07/18/17 07:42 36.9 62 16 102/54 (70) 99 Room Air Notes Mental Status: alert / awake / arousable, participated in evaluation Pt Amnestic to Procedure: Yes Nausea / Vomiting: adequately controlled Pain: adequately controlled Airway Patency, RR, SpO2: stable & adequate BP & HR: stable & adequate Hydration State: stable & adequate Anesthetic Complications: no major complications apparent
[2017-07-18] MEDS ORDERED: LACTATED RINGER'S 1000ML 1,000 ML IV SCH (13:00)
[2017-07-18] MEDS ORDERED: CHECK SCOPOLAMINE PATCH PLACEMENT SCH (16:00)
[2017-07-18] MEDS ORDERED: IV FLUIDS COMPLETED PRN (16:45)
[2017-07-18] MEDS ORDERED: DOCUSATE SODIUM 100 MG CAP PO SCH (21:00)
--- NOTE | 2017-07-19 07:34 | DISCHARGE SUMMARY ---
DISCHARGE SUMMARY: The patient had a total laparoscopic hysterectomy on 07/18/2017. Operative note is dictated. The procedure was uncomplicated. Course in hospital was uncomplicated. She left later the same day. At that time she was ambulating, passing gas, minimal bleeding, had no extremity pain. Pain was well controlled and she was tolerating an oral diet. PHYSICAL EXAMINATION: VITAL SIGNS: Stable. She was afebrile. EXTREMITIES: Negative for tenderness. IMPRESSION AND PLAN: Just a few hours post-hysterectomy, discharged home. Discharge instructions reviewed. Percocet and Motrin prescriptions given. The Patient advised to call with any concerns.
== END 2017-07-18 18:50 | disposition home or self-care (01) ==
LOC: C.ACU 07:10 → C.MS4N 12:50
PROVIDERS: ADMIT Obstetrics & Gynecology; ATTEND Obstetrics & Gynecology
DX: N92.4 Excessive bleeding in the premenopausal period (principal); N92.0 Excessive and frequent menstruation with regular cycle; D25.1 Intramural leiomyoma of uterus; Z80.49 Family history of malignant neoplasm of other genital organs